=== PATIENT | male | born 1955 | race Caucasian/White ===

== ENCOUNTER 2017-09-11 20:44 | Inpatient (IN) | payer OTHER ==
[2017-09-11] MEDS ORDERED: ONDANSETRON 4 MG/2 ML VIAL IVP ONE (21:00)
[2017-09-11] MEDS ORDERED: HYDROmorphONE/DILAUDID 2 MG/ML INJ IVP ONE ×4 (21:00→23:38)
--- NOTE | 2017-09-11 21:24 | EDPHY ---
H & P Time Seen by Provider: 09/11/17 20:54 HPI/ROS: CHIEF COMPLAINT: Back pain History by patient HISTORY OF PRESENT ILLNESS: 62-year-old male with a history of chronic back pain who is status post microdiskectomy 2 years ago presents complaining of acute onset severe upper lumbar spine pain after a fall last night. Patient was given someone a hug and lifting her off the ground when he fell backwards striking the car and the ground. He was unable to get up on his own due to the severe pain. Bystanders helped him up. He is able to walk but his pain is worse when he moves around or changes position. It does not radiate down his legs and is not associated any numbness or tingling. He has had no difficulty controlling his bowel or bladder and there is no incontinence. He has tried taking ibuprofen with no relief. He put a zyqy-ggn-dcrggtz lidocaine patch on with minimal relief. He tried taking a tramadol he had from after her surgery which was at home with no relief. He has developed nausea secondary to the severe pain. Patient states that he has daily pain in his back which he describes as a low ache for which he rarely takes ibuprofen but this pain is different and markedly more severe. Patient is not on any steroid medications and does not have diabetes. REVIEW OF SYSTEMS: As in HPI, and all other systems reviewed and are negative Smoking Status: Never smoked Physical Exam: General Appearance: Alert, uncomfortable appearing, standing near the gurney. Head: Normocephalic, atraumatic Eyes: Pupils equal and round, no pallor or injection. ENT, Mouth: Mucous membranes moist. Neck: No bony tenderness, full range of motion Gastrointestinal: Abdomen is soft and nontender, no masses, bowel sounds normal. Perianal sensation intact. Pelvis: Stable, mild right-sided tenderness with compression Neurological: Awake, alert and oriented x 3, no pronator drift, halting gait, , DTRs 2+ and equal bilaterally in knees and ankles, left side pain with straight leg raise of left leg, no pain with right leg straight leg raise, wiggles all toes, strength is 5/5 and equal bilaterally in the lower extremities Back: Well-healed midline scar in the mid L-spine, Positive upper L-spine bony tenderness, positive sacral tenderness, no CVA tenderness Skin: Warm and dry, no rashes. Musculoskeletal: Neck is supple, FROM, nontender. Extremities: symmetrical, full range of motion. Psychiatric: Patient has normal affect, there is no agitation. Constitutional: Initial Vital Signs Temperature (C) 37.0 C 09/11/17 21:02 Heart Rate 90 09/11/17 21:02 Respiratory Rate 20 09/11/17 21:02 Blood Pressure 157/103 H 09/11/17 21:02 O2 Sat (%) 96 09/11/17 21:02 O2 Delivery Mode Nasal Cannula O2 (L/minute) 2 Allergies/Adverse Reactions: No Known Allergies Allergy (Verified 09/11/17 21:01) Home Medications: Medication Instructions Recorded Aspirin [Aspirin 81mg (*)] 09/11/17 Statin 09/11/17 MDM/Departure - MDM Imaging Results: Imaging Impressions Lumbar Spine X-Ray 09/11/17 21:13 Impression: 1. L2 moderate to severe compression fracture with retropulsion. 2. Recommend CT or MRI of the lumbar spine. Findings and recommendations discussed with Emergency Department physician, Marilou Alvarez MD at 21:50 hour, 09/11/2017. Final report concurs with initial preliminary interpretation. Imaging: Discussed imaging studies w/ on call Radiologist Medications Given: Discontinued Medications Hydromorphone HCl (Dilaudid) 0.5 mg IVP EDNOW ONE Stop: 09/11/17 21:01 Last Admin: 09/11/17 21:18 Dose: 0.5 mg Hydromorphone HCl (Dilaudid) 0.5 mg IVP EDNOW ONE Stop: 09/11/17 22:00 Last Admin: 09/11/17 22:01 Dose: 0.5 mg Ondansetron HCl (Zofran) 4 mg IVP EDNOW ONE Stop: 09/11/17 21:01 Last Admin: 09/11/17 21:18 Dose: 4 mg ED Course/Re-evaluation: 62-year-old man with history of back pain presents with acute new back pain after fall 24 hr ago. Patient is neurologically intact. Because of the trauma the patient's age x-rays were obtained. Patient was given IV Dilaudid 0.5 mg and Zofran. On re-evaluation his pain it was better while he was laying flat on the gurney significantly worse if he moves in all. He did request a 2nd dose of pain medicines which he was given. After the Dilaudid the patient's oxygen saturation was noted to decrease somewhat and he was placed on nasal cannula oxygen. X-rays revealed compression fracture of L2 with concern for retropulsed fragment per the radiologist. Patient was therefore sent for CT of the lumbar spine which showed at unstable burst fracture with 6 mm retropulsion of the superior inferior fragments. I discussed the case with Dr. Burgos who felt the patient was a candidate for a [place] brace given that he is neurologically intact and somewhat ambulatory. He requested [employer] fit the patient for a [place] brace. On re-evaluation the patient continued to have significant pain with any movement, and was only comfortable he was laying still and flat. He and his both felt it to be extremely difficult to manage at home given they have multiple stairs to get back into the house and she was having difficulty assisting him from the bed to the bathroom today and the severity of his pain. Therefore I discussed the case with the hospitalist station examiner who agrees to admit the patient for pain control. Dr. Bhat will see the patient in consult. - Depart Disposition: [facility] Inpatient Acute Clinical Impression: Burst fracture of lumbar vertebra Qualifiers: Encounter type: initial encounter Fracture type: closed Qualified Code(s): S32.001A - Stable burst fracture of unspecified lumbar vertebra, initial encounter for closed fracture Condition: Fair Referrals: Chad Olivia DO [Primary Care Provider] - As per Instructions
[2017-09-11] MEDS ORDERED: HYDROmorphone HCL/NS 0.5 MG/ML SYR IVP PRN (22:49)
[2017-09-11] MEDS ORDERED: ACETAMINOPHEN 325 MG TAB PO PRN (22:49)
[2017-09-12] MEDS: HYDROmorphONE/DILAUDID 2 MG TAB PO PRN ×6 (01:02→22:29)
[2017-09-12] MEDS: ONDANSETRON DISINTEGRATING 4 MG TAB PO PRN ×3 (01:02→19:59)
--- NOTE | 2017-09-12 01:11 | PDGENHP ---
History and Physical - Chief Complaint Back pain - History of Present Illness 62 yo M w/ CAD and multiple orthopedic surgeries presents with back pain. Patient experienced a fall yesterday and has had severe back pain since. He denies leg weakness/numbness or loss of bowel or bladder control. Evaluation in the ED revealed lumbar compression fracture. Patient is being admitted for pain control and neurosurgical consultation. History Information - Allergies/Home Medication List Allergies/Adverse Reactions: No Known Allergies Allergy (Verified 09/11/17 21:01) Home Medications: Aspirin [Aspirin 81mg (*)] 09/11/17 [Last Taken Unknown] Statin 09/11/17 [Last Taken Unknown] I have personally reviewed and updated: family history, medical history - Past Medical History coronary artery disease - Surgical History Reports: spinal surgery Additional surgical history: R shoulder repair. B/L knee surgeries - Family History Additional family history: Denies family hx of CAD - Social History Smoking Status: Never smoked Review of Systems Review of Systems: ROS: 10pt was reviewed & negative except for what was stated in HPI & below Physical Exam Physical Exam: Temp Pulse Resp BP Pulse Ox 37.2 C 78 18 145/89 H 96 09/11/17 23:55 09/11/17 23:55 09/11/17 23:55 09/11/17 23:55 09/11/17 23:55 O2 (L/minute) 2 Constitutional: no apparent distress, not in pain Eyes: PERRL, EOMI Ears, Nose, Mouth, Throat: moist mucous membranes, no oral mucosal ulcers Cardiovascular: regular rate and rhythym, no murmur, rub, or gallop Respiratory: no respiratory distress, clear to auscultation Gastrointestinal: normoactive bowel sounds, soft, non-tender abdomen Skin: warm, normal color Musculoskeletal: full muscle strength, no muscle tenderness Neurologic: AAOx3, sensation intact bilaterally, CN II-XII Intact, No weakness, No numbness Psychiatric: interacting appropriately, not anxious Lab Data & Imaging Review Imaging Review: Imaging Impressions Lumbar Spine X-Ray 09/11/17 21:13 Impression: 1. L2 moderate to severe compression fracture with retropulsion. 2. Recommend CT or MRI of the lumbar spine. Findings and recommendations discussed with Emergency Department physician, Marilou Alvarez MD at 21:50 hour, 09/11/2017. Final report concurs with initial preliminary interpretation. Lumbar Spine CT 09/11/17 21:51 Impression: 1. Severe burst fracture of the L2 vertebral body and posterior elements with 40 % loss of vertical height, retropulsion 6 mm resulting in moderate to severe central canal stenosis, and fractures also extending through bilateral pedicles and bilateral lamina consistent with an unstable fracture. 2. L4-L5 mild stenosis secondary to right paramedian disk herniation/broad- based disk bulge. 3. Infrarenal abdominal aortic aneurysm 3.2 cm. 4. Recommend MRI of the lumbar spine for further evaluation. Findings and recommendations discussed with Emergency Department physician, Marilou Alvarez MD at 22:15 hour, 09/11/2017. Final report concurs with initial preliminary interpretation. A test result has been communicated to a licensed care provider and documented in the [facility] Critical Result system on 09/11/2017 22:23, Message ID [id number]. Assessment & Plan Assessment: 62 yo M w/ CAD presents with back pain after a fall and found to have lumbar fracture. Plan: 1. L2 compression fracture - Severe burst fracture of the L2 vertebral body and posterior elements with 40% loss of vertical height, retropulsion 6 mm resulting in moderate to severe central canal stenosis, and fractures also extending through bilateral pedicles and bilateral lamina consistent with an unstable fracture. - Admit for observation - Dilaudid IV/PO for pain control - Neurosurgery service consulted, appreciate assistance - PT/OT evaluations 2. CAD - S/p sent placement to [facility] in 2013. Continue ASA and statin. 3. OA - Multiple prior surgeries including spine, shoulder, and knees. Diet - Regular Code - Full Ppx - SCDs Dispo - Admit under observation status
[2017-09-12] MEDS ORDERED: LORazepam 0.5 MG TAB PO ONE (04:55)
[2017-09-12] MEDS ORDERED: METHOCARBAMOL 1,000 MG in NS 50 ML IVP ONE (08:23)
--- NOTE | 2017-09-12 10:20 | GCON ---
[f rep st] CONSULTATION DATE OF CONSULTATION: 09/12/2017 REASON FOR CONSULTATION: Low back pain, status post fall with evidence of compression fracture. HOSPITAL COURSE/HISTORY/MAJOR MEDICAL FINDINGS: The patient is a 62-year-old gentleman who is known to Dr. Henderson for undergoing a prior diskectomy in 2015. He states that on Tuesday he was joking around with some of his friends near his car, slipped, and fell on his back. He has been experiencing back pain since that time. He did take some tramadol that he had in his house, however, that was ineffective. He denies any leg pain, numbness, tingling, or weakness. Denies any loss of bowel or bladder control. He states his spasms continued to progress over Tuesday and that is why he came into the emergency room last night. REVIEW OF SYSTEMS: Negative other than what is stated in the HPI. Please see the pertinent negatives and pertinent positives. PAST MEDICAL HISTORY: Significant for coronary artery disease, status post stents placed in 2013, hypercholesteremia, and history of degenerative disk disease. PAST SURGICAL HISTORY: Significant for stent placement as well as history of diskectomy, right shoulder repair, and bilateral knee surgeries. HOME MEDICATIONS: Aspirin 81 mg one p.o. daily and a statin for his hypercholesterolemia. FAMILY HISTORY: Significant for lung cancer in his father and his mother of old age. SOCIAL HISTORY: The patient occasionally will smoke a cigar. He has never smoked tobacco and denies any illicit drug use or chronic daily alcohol use. PHYSICAL EXAMINATION: VITALS: BP is 152/91, heart rate is 68. He is 91% on 3 L nasal cannula, and temperature is 36.8. GENERAL: The patient is in no acute distress. NEURO: He is alert and oriented x3. Answers all questions appropriately. Affect appropriate to given situation. Cranial nerves 2 through 12 are grossly intact. EOMI and PERRLA. Face is symmetric, tongue protrudes midline, uvula and palate elevate symmetrically, shoulder shrug is symmetric, face sensation is intact bilaterally, and hearing is intact to conversation bilaterally. The patient is a 5/5 and equal in his bilateral upper and bilateral lower extremities including his deltoids, triceps, biceps, wrist flexors, extensors, interossei, intrinsic turntable engineer, iliopsoas, hamstrings, quadriceps, plantar flexion, dorsiflexion, and EHL. Sensation is intact throughout. MUSCULOSKELETAL: He does have tenderness over his lumbar spine in the L2 area. DIAGNOSTIC REVIEW: The patient underwent lumbar spine x-rays, which demonstrated an L2 skjghmmr-zb-kzffdz compression fracture with retropulsion. He further underwent a lumbar spine CT which demonstrates severe burst fracture of the L2 vertebral body with posterior elements of 40% vertical height loss, retropulsion of 6 mm resulting in itvzzgig-dg-ybewxo canal stenosis extending through the bilateral pedicles. There was an L4-L5 mild stenosis secondary to his right paramedian disk herniation. There was an incidental infrarenal abdominal aortic aneurysm of 3.2 cm noted. ASSESSMENT AND PLAN: The patient is a 62-year-old gentleman who sustained a fall on Tuesday night who has severe low back pain. He has evidence of an L2 burst type compression fracture with some retropulsion. The patient was seen both by Dr. Henderson and myself. The patient is neurologically intact. I did discuss conservative versus surgical options with the patient this morning. We will attempt conservative management with optimization of pain management including muscle relaxers which have been ordered. A Jarrod brace for the patient to wear whenever he is greater than 60 degrees. Until the brace arrives, he should be in bed no more than 30 degrees. We appreciate Medicine's primary management of this patient. He does have a history of cardiac disease as well as an infrarenal aortic aneurysm noted on his CT. We will defer to Medicine with appropriate followup and management of that finding. Physical therapy and occupational therapy as tolerated with brace. We will obtain standing x-rays in brace once it has arrived. If the patient fails conservative management, we did briefly discuss that surgery for this burst fracture would require internal fixation with hardware. Please notify Neurosurgery with any change in neurological or motor exam. /[id number]/MODL MTDD
[2017-09-12] MEDS ORDERED: CARBOXYMETHYLCELLULOSE 1% 0.4 ML DROPERETTE EACHEYE PRN (11:47)
--- NOTE | 2017-09-12 12:12 | HOSPPROG ---
Hospitalist Progress Note Assessment/Plan: # L2 burst fracture - patient would like to treat non-operatively - MRI today - [place] brace ordered # uncontrolled pain - cont dilaudid IV - increase dilaudid PO - sched APAP # anxiety - will add valium for muscle spasms and anxiety # 3.2 cm infrarenal aortic aneurysm - outpatient follow up for surveillance Subjective: still having severe pain with any movement; discussion with patient and about plans Objective: Vital Signs Temp Pulse Resp BP Pulse Ox 36.4 C 74 18 160/96 H 91 L 09/12/17 11:25 09/12/17 11:25 09/12/17 11:25 09/12/17 11:25 09/12/17 11:25 Laboratory Results 09/12/17 04:16 09/11/17 09/12/17 09/13/17 05:59 05:59 05:59 Intake Total 900 300 Output Total 250 Balance [address] reviewed - Physical Exam Constitutional: uncomfortable, other (lying flat in bed) Cardiovascular: regular rate and rhythym, no murmur, rub, or gallop Respiratory: no respiratory distress, no rales or rhonchi Gastrointestinal: soft, non-tender abdomen, no palpable masses Musculoskeletal: other (motor and sensation intact in feet) ICD10 Worksheet Patient Problems: Problems Problem Status Onset Burst fracture of lumbar vertebra Acute
[2017-09-12] MEDS: DIAZEPAM 5 MG TAB PO PRN ×2 (13:29→19:55)
[2017-09-12] MEDS: HYDROmorphone HCL/NS 0.5 MG/ML SYR IVP PRN (14:54)
--- NOTE | 2017-09-12 15:15 | ASMTCMCOM ---
CM Note CM Note Notes: Pt awaiting [place] brace for L2 burst fracture after a fall. No therapies ordered now. CM to follow for d/c planning. Date Signed: 09/12/2017 03:15 PM Electronically Signed By:ANGELINA Cano
--- NOTE | 2017-09-12 15:46 | PDMN ---
Medical Necessity Medical necessity: GRG musculoskeletal disease: L2 burst type compression fx with some retropulsion, ongoing med nec care IV pain meds, Valium, PT, OT Jarrod brace ordered. INPT care needed , monitoring and tx > 23 hours needed.
[2017-09-12] MEDS: METHOCARBAMOL 500 MG TAB PO SCH ×2 (16:11→21:46)
[2017-09-12] MEDS: ACETAMINOPHEN 500 MG TAB PO SCH ×2 (16:11→21:45)
[2017-09-12] MEDS: ROSUVASTATIN CALCIUM 40 MG TAB PO SCH (19:55)
[2017-09-12] MEDS: MELATONIN 3 MG TAB PO SCH (21:46)
[2017-09-13] MEDS: DIAZEPAM 5 MG TAB PO PRN ×4 (03:03→20:45)
[2017-09-13] MEDS: HYDROmorphONE/DILAUDID 2 MG TAB PO PRN ×6 (03:04→21:46)
[2017-09-13] MEDS: ACETAMINOPHEN 500 MG TAB PO SCH ×3 (07:50→21:46)
[2017-09-13] MEDS: METHOCARBAMOL 500 MG TAB PO SCH ×3 (07:52→21:47)
--- NOTE | 2017-09-13 08:53 | NEUSURGPN ---
Assessment/Plan: 62 y/o male with burst type compression fracture. Patient would like to try conservative treatment prior to surgical intervention. -OOB with brace and PT today to see if able to tolerate brace -Standing xrays in brace pending -Optimize pain management -Discussed with Dr. Henderson -Please notify NS with any change in neuro/motor exam Subjective: back pain with sitting at the edge of the bed. Denies any leg pain, numbness, tingling or weakness. Objective: NAD A&Ox3 MAEx4 5/5 and equal in BUE and BLE. - Physician Discussed Patient with : [facility] Physical Exam - Vitals, I&O, Labs I and O 09/12/17 09/13/17 09/14/17 05:59 05:59 05:59 Intake Total 900 1850 Output Total 1050 200 Balance 900 800 -200 Weight 88.451 kg 88.451 kg Intake: Oral (ml) 900 1850 Output: Urine (ml) 1050 200 Toilet 250 Urinal 800 200 Other: Intake Quantity Yes Sufficient Number of Voids Toilet 1 Urinal 4 Vital Signs Temp Pulse Resp BP Pulse Ox 36.4 C 74 16 158/96 H 93 09/13/17 07:36 09/13/17 07:36 09/13/17 07:36 09/13/17 07:36 09/13/17 07:36 Laboratory Results 09/12/17 04:16 ICD10 Worksheet Patient Problems: Problems Problem Status Onset Burst fracture of lumbar vertebra Acute
[2017-09-13] MEDS ORDERED: BISACODYL 10 MG SUPP PR PRN (12:56)
[2017-09-13] MEDS ORDERED: LACTULOSE 20 GM/30 ML UDCUP PO PRN (12:56)
--- NOTE | 2017-09-13 13:04 | HOSPPROG ---
Hospitalist Progress Note Assessment/Plan: # pre-syncope - suspect d/t pain; will check CBC, BMP, trop and ECG # L2 burst fracture - patient would like to treat non-operatively - Jarrod brace ordered - standing x-rays with brace ordered - not really bearing weight today - not ready for discharge # uncontrolled pain - cont dilaudid IV - dilaudid PO with decreased frequency - sched APAP # anxiety - cont valium for muscle spasms and anxiety # 3.2 cm infrarenal aortic aneurysm - outpatient follow up for surveillance Subjective: pre-syncopal event today while working with PT; felt it was due to uncontrolled pain; no CP or SOB Objective: Vital Signs Temp Pulse Resp BP Pulse Ox 36.8 C 64 16 103/59 L 92 09/13/17 11:17 09/13/17 11:17 09/13/17 11:17 09/13/17 11:17 09/13/17 11:17 Laboratory Results 09/12/17 04:16 09/12/17 09/13/17 09/14/17 05:59 05:59 05:59 Intake Total 900 1850 Output Total 1050 200 Balance 900 800 -200 high risk needing IV narcotics - Physical Exam Constitutional: no apparent distress, appears nourished Cardiovascular: regular rate and rhythym, no murmur, rub, or gallop Respiratory: no respiratory distress, no rales or rhonchi, clear to auscultation Gastrointestinal: soft, non-tender abdomen, no palpable masses ICD10 Worksheet Patient Problems: Problems Problem Status Onset Burst fracture of lumbar vertebra Acute
[2017-09-13] MEDS: HYDROmorphone HCL/NS 0.5 MG/ML SYR IVP PRN ×4 (13:05→20:53)
--- NOTE | 2017-09-13 13:24 | CPEKG ---
Heart Rate: 70 RR Interval: 857 P-R Interval: 176 QRSD Interval: 90 QT Interval: 420 QTC Interval: 454 P Stephan: 55 QRS Stephan: 54 T Wave Stephan: 37 EKG Severity - NORMAL ECG - EKG Impression: SINUS RHYTHM Electronically Signed By: Amee Delacruz 13-Sep-2017 16:41:13
[2017-09-13 13:45] LABS: PLATELET COUNT 163 10^3/uL (150-400)
[2017-09-13] MEDS: ENOXAPARIN 40 MG/0.4 ML SYR SC SCH (13:49)
[2017-09-13] MEDS: ROSUVASTATIN CALCIUM 40 MG TAB PO SCH (20:46)
[2017-09-13] MEDS: SENNOSIDES/DOCUSATE SODIUM TAB PO SCH (20:47)
[2017-09-13] MEDS: MELATONIN 3 MG TAB PO SCH (21:47)
[2017-09-13] MEDS: ONDANSETRON DISINTEGRATING 4 MG TAB PO PRN (21:50)
[2017-09-14] MEDS: HYDROmorphone HCL/NS 0.5 MG/ML SYR IVP PRN ×6 (01:52→18:32)
[2017-09-14] MEDS: HYDROmorphONE/DILAUDID 2 MG TAB PO PRN ×6 (01:52→22:36)
[2017-09-14] MEDS: DIAZEPAM 5 MG TAB PO PRN ×3 (01:54→19:52)
--- NOTE | 2017-09-14 08:00 | NEUSURGPN ---
Assessment/Plan: Assessment: 62 y/o male with burst type compression fracture of L2 Plan: -pt not tolerating brace at this time and gets "horrible back pain". He denies any LE complaints of pain, numbness or tingling -I spoke with him about surgery and offered this to him for tonight but he would like to try the brace alternative today and then surgery tomorrow if he fails with bracing. Pt made NPO as we would have time tonight for this as well. Will recheck on him later today -Dr Henderson agrees with plan -OOB with brace and PT today to see if able to tolerate brace more today -standing xrays in brace pending -Optimize pain management -Discussed with Dr. Henderson -Please notify NS with any change in neuro/motor exam -call with any questions or concerns Subjective: Awake and alert. NAD. Eating/drinking and voiding well. No gamble/neck/chest/abd or gu complaints. No f/c/n/v/d. Objective: AAO x 3, PERRLA/EOMI no droop CN 2-12 grossly intact +lt touch 5/5 BUE/BLE = Neuro Check Frequency: per routine Urinary Catheter in Place: No - Physician Discussed Patient with Dr.: Henderson Neurosurgery Physical Exam - Vitals, I&O, Labs I and O 09/13/17 09/14/17 09/15/17 05:59 05:59 05:59 Intake Total 1850 950 Output Total 1050 1150 400 Balance 800 -200 -400 Weight 88.451 kg Intake: Oral (ml) 1850 950 Output: Urine (ml) 1050 1150 400 Toilet 250 Urinal 800 1150 400 Other: Intake Quantity Yes Sufficient Number of Voids Toilet 1 Urinal 4 1 1 Vital Signs Temp Pulse Resp BP Pulse Ox 36.9 C 74 16 149/90 H 91 L 09/14/17 07:38 09/14/17 07:38 09/14/17 07:38 09/14/17 07:38 09/14/17 07:38 Laboratory Results 09/13/17 13:40 09/13/17 13:40 ICD10 Worksheet Patient Problems: Problems Problem Status Onset Burst fracture of lumbar vertebra Acute
[2017-09-14] MEDS: METHOCARBAMOL 500 MG TAB PO SCH ×3 (08:47→20:54)
[2017-09-14] MEDS: ACETAMINOPHEN 500 MG TAB PO SCH ×3 (08:47→22:35)
[2017-09-14] MEDS: SENNOSIDES/DOCUSATE SODIUM TAB PO SCH ×2 (08:49→19:52)
[2017-09-14] MEDS: ENOXAPARIN 40 MG/0.4 ML SYR SC SCH (08:55)
[2017-09-14] MEDS: oxyCODONE IR 5 MG TAB PO PRN ×3 (09:51→22:36)
--- NOTE | 2017-09-14 13:27 | HOSPPROG ---
Hospitalist Progress Note Assessment/Plan: 62y male with c/o back pain. First encounter, chart reviewed. D/W RN. # pre-syncope - suspect d/t pain; # L2 burst fracture - - patient would like to treat non-operatively - Jarrod brace trial - standing x-rays with brace ordered, unable - not really bearing weight today - not ready for discharge # uncontrolled pain -add Oxy IR - cont dilaudid IV - dilaudid PO with decreased frequency - sched APAP # anxiety - -cont valium for muscle spasms and anxiety # 3.2 cm infrarenal aortic aneurysm - -outpatient follow up for surveillance ##Dispo -unclear, may likely need surgery -doesn't want it today -wants to talk to Dr Henderson first Subjective: Still having significant pain. No other issues. Concerns for surgery. Objective: Vital Signs Temp Pulse Resp BP Pulse Ox 36.4 C 68 16 145/99 H 92 09/14/17 11:20 09/14/17 11:20 09/14/17 11:20 09/14/17 11:20 09/14/17 11:20 Laboratory Results 09/13/17 13:40 09/13/17 13:40 09/13/17 09/14/17 09/15/17 05:59 05:59 05:59 Intake Total 1850 950 500 Output Total 1050 1150 400 Balance 800 -200 100 - Physical Exam Constitutional: appears nourished, uncomfortable, No obese Eyes: PERRL, anicteric sclera, EOMI Ears, Nose, Mouth, Throat: moist mucous membranes, hearing normal, ears appear normal Cardiovascular: No JVD, No tachycardia, No edema Respiratory: no respiratory distress, no rales or rhonchi, clear to auscultation Gastrointestinal: normoactive bowel sounds, No tenderness, No ascites Skin: warm, normal color, No mottled Musculoskeletal: pain with ROM, generalized weakness, No normal joint ROM Neurologic: AAOx3 Psychiatric: interacting appropriately, not encephalopathic, thought process linear, anxious ICD10 Worksheet Patient Problems: Problems Problem Status Onset Burst fracture of lumbar vertebra Acute
[2017-09-14] MEDS: POLYETHYLENE GLYCOL 3350 17 GM PKT PO PRN (16:58)
[2017-09-14] MEDS: ONDANSETRON 4 MG/2 ML VIAL IVP PRN (18:36)
[2017-09-14] MEDS: ROSUVASTATIN CALCIUM 40 MG TAB PO SCH (19:52)
[2017-09-14] MEDS: MELATONIN 3 MG TAB PO SCH (22:37)
[2017-09-15] MEDS: HYDROmorphONE/DILAUDID 2 MG TAB PO PRN ×5 (02:05→20:31)
[2017-09-15] MEDS: DIAZEPAM 5 MG TAB PO PRN ×3 (02:06→20:32)
[2017-09-15] MEDS: ONDANSETRON 4 MG/2 ML VIAL IVP PRN ×2 (04:25→06:23)
[2017-09-15] MEDS: HYDROmorphone HCL/NS 0.5 MG/ML SYR IVP PRN ×3 (04:25→08:44)
[2017-09-15] MEDS: NS 1,000 ML IV SCH ×2 (06:15→23:55)
[2017-09-15] MEDS: METHOCARBAMOL 500 MG TAB PO SCH ×3 (07:45→23:08)
[2017-09-15] MEDS: SENNOSIDES/DOCUSATE SODIUM TAB PO SCH ×2 (07:45→22:07)
--- NOTE | 2017-09-15 08:37 | NEUSURGPN ---
Assessment/Plan: 62 y/o male with burst type compression fracture of L2 who is not tolerating bracing -Patient has attempted and failed conservative management. Therefore have recommended L1-L3 laminectomy and PSF. Risks, benefits and alternatives discussed with the patient. Consents signed and questions answered. -Optimize pain management -NPO at midnight for surgery tomorrow morning. -Constipation, appreciate medicine management. Patient on bowel protocol -Seen by Dr. Henderson and myself this morning. -Please notify NS with any change in neuro/motor exam Subjective: low back pain, not tolerable with brace or pain medications. Objective: NAD A&Ox3 MAEx4 5/ and equal in BUE and BLE. - Physician Patient Seen by : [facility] Physical Exam - Vitals, I&O, Labs I and O 09/14/17 09/15/17 09/16/17 05:59 05:59 05:59 Intake Total 950 2250 Output Total 1150 900 Balance -200 1350 Intake: Oral (ml) 950 2000 IV Intake (ml) 250 Output: Urine (ml) 1150 900 Catheter 500 Urinal 1150 400 Other: Intake Quantity Yes Sufficient Number of Voids Bedside Commode 2 Urinal 1 1 Vital Signs Temp Pulse Resp BP Pulse Ox 36.7 C 76 15 149/98 H 92 09/15/17 07:29 09/15/17 07:29 09/15/17 07:29 09/15/17 07:29 09/15/17 07:29 Laboratory Results 09/13/17 13:40 09/13/17 13:40 ICD10 Worksheet Patient Problems: Problems Problem Status Onset Burst fracture of lumbar vertebra Acute
[2017-09-15] MEDS: ENOXAPARIN 40 MG/0.4 ML SYR SC SCH (08:48)
[2017-09-15] MEDS: ACETAMINOPHEN 500 MG TAB PO SCH ×3 (08:50→23:08)
--- NOTE | 2017-09-15 10:10 | ASMTCMCOM ---
CM Note CM Note Notes: Pt has not been able to tolerate brace and has uncontrolled pain. Pt to OR tomorrow for surgery of L2 burst fx. OT/PT to assess after surgery. CM to follow for d/c planning needs. Date Signed: 09/15/2017 10:09 AM Electronically Signed By:ANGELINA Cano
[2017-09-15] MEDS: MAGNESIUM HYDROXIDE 30 ML UDCUP PO PRN (11:00)
--- NOTE | 2017-09-15 11:39 | HOSPPROG ---
Hospitalist Progress Note Assessment/Plan: 62y male with c/o back pain. D/W RN. # pre-syncope - suspect d/t pain; # L2 burst fracture - - patient has tried non-operative treatment, not tolerating - Jarrod brace trialed - standing x-rays with brace - not really bearing weight today -plan for surgery in am # uncontrolled pain - Oxy IR - cont dilaudid IV - dilaudid PO with decreased frequency - sched APAP #Constipation -aggressive therapy -fleets ordered # anxiety - -cont valium for muscle spasms and anxiety # 3.2 cm infrarenal aortic aneurysm - -outpatient follow up for surveillance #Dispo -needs surgery Subjective: Still having significant pain. Unable to have a bm. Objective: Vital Signs Temp Pulse Resp BP Pulse Ox 36.7 C 76 15 149/98 H 92 09/15/17 07:29 09/15/17 07:29 09/15/17 07:29 09/15/17 07:29 09/15/17 07:29 Laboratory Results 09/13/17 13:40 09/13/17 13:40 09/14/17 09/15/17 09/16/17 05:59 05:59 05:59 Intake Total 950 2250 Output Total 1150 900 Balance -200 1350 - Physical Exam Constitutional: appears nourished, uncomfortable Eyes: PERRL, anicteric sclera Ears, Nose, Mouth, Throat: moist mucous membranes, hearing normal Cardiovascular: No JVD, No edema Respiratory: no respiratory distress, reduced air movement Gastrointestinal: distension, No tenderness, No ascites Skin: warm, normal color, No mottled Musculoskeletal: joint tenderness, pain with ROM, muscular tenderness, generalized weakness Neurologic: AAOx3 Psychiatric: interacting appropriately, not anxious, not encephalopathic ICD10 Worksheet Patient Problems: Problems Problem Status Onset Burst fracture of lumbar vertebra Acute
[2017-09-15] MEDS ORDERED: MAGNESIUM CITRATE 300 ML BOTTLE PO PRN (16:22)
[2017-09-15] MEDS: ROSUVASTATIN CALCIUM 40 MG TAB PO SCH (20:32)
[2017-09-15] MEDS: ONDANSETRON DISINTEGRATING 4 MG TAB PO PRN (21:10)
[2017-09-15] MEDS: MELATONIN 3 MG TAB PO SCH (23:09)
[2017-09-16] MEDS: HYDROmorphONE/DILAUDID 2 MG TAB PO PRN ×4 (01:02→23:49)
[2017-09-16] MEDS: DIAZEPAM 5 MG TAB PO PRN (01:54)
[2017-09-16] MEDS ORDERED: morphINE SR 15 MG TAB PO ONE (05:00)
[2017-09-16] MEDS ORDERED: ceFAZolin 2 GM/DEXTROSE 100 ML IV ONE (05:00)
[2017-09-16] MEDS ORDERED: GABAPENTIN 300 MG CAP PO ONE (05:00)
[2017-09-16] MEDS ORDERED: ceFAZolin 2 GM/SWFI 2 GM/20 ML SYR IVP ONE (05:00)
[2017-09-16] MEDS ORDERED: GABAPENTIN 100 MG CAP PO ONE (05:00)
[2017-09-16] MEDS: HYDROmorphone HCL/NS 0.5 MG/ML SYR IVP PRN (06:17)
[2017-09-16] MEDS ORDERED: LR 1,000 ML IV ONE (07:26)
--- NOTE | 2017-09-16 07:41 | PDHPUP ---
History & Physical Update H&P update statement: This history and physical update is based on an assessment of the patient which was completed after admission or registration (within 24 hours), but prior to the surgery/procedure. H&P update: H&P reviewed & patient examined, no change in patient's condition since H&P completed (Patient seen this morning. All questions answered. Consents have been signed and site marked. Plan for L1-L3 posterior fusion and laminectomy. Risks and benefits of surgery reviewed.)
[2017-09-16] MEDS ORDERED: THROMBIN (BOVINE) 20,000 UNIT VIAL TP ONE (07:44)
[2017-09-16] MEDS ORDERED: BUPIVACAINE 0.25% 30 ML SDV ONE (07:44)
[2017-09-16] MEDS ORDERED: CHLORHEXIDINE GLUC HIBICLENS 118 ML BTL TP ONE (07:44)
[2017-09-16] MEDS ORDERED: BACITRACIN 50,000 UNITS/10 ML SYR IRR ONE (07:45)
[2017-09-16] MEDS ORDERED: ceFAZolin 2 GM/SWFI 20 ML SYR IVP ONE (07:58)
[2017-09-16] MEDS ORDERED: MIDAZOLAM 2 MG/2 ML VIAL ONE (08:19)
[2017-09-16] MEDS ORDERED: PROPOFOL/EMULSION 500 MG/50 ML BOTTLE IV ONE (08:19)
[2017-09-16] MEDS ORDERED: fentaNYL 100 MCG/2 ML INJ ONE (08:19)
[2017-09-16] MEDS ORDERED: DEXMEDETOMIDINE IN 0.9 % NACL 100 ML IV ONE (08:30)
[2017-09-16] MEDS ORDERED: PHENYLEPHRINE HCL 100 MCG/ML SYR ONE (08:59)
[2017-09-16] MEDS ORDERED: DEXAMETHASONE 4 MG/ML VIAL ONE (08:59)
[2017-09-16] MEDS ORDERED: SUGAMMADEX SODIUM 200 MG/2 ML VIAL IVP ONE (08:59)
[2017-09-16] MEDS ORDERED: SUCCINYLCHOLINE CHLORIDE 200 MG/10 ML SYR IVP ONE (08:59)
[2017-09-16] MEDS ORDERED: CALCIUM CHLORIDE 1 GM/10 ML INJ ONE (08:59)
[2017-09-16] MEDS ORDERED: METOCLOPRAMIDE 10 MG/2 ML VIAL ONE (08:59)
[2017-09-16] MEDS ORDERED: ONDANSETRON 4 MG/2 ML VIAL ONE (08:59)
[2017-09-16] MEDS ORDERED: RANITIDINE 50 MG/2 ML VIAL ONE (08:59)
[2017-09-16] MEDS ORDERED: ROCURONIUM 50 MG/5 ML VIAL ONE (08:59)
[2017-09-16] MEDS ORDERED: LIDOCAINE 2% 5 ML SDV ONE (08:59)
--- NOTE | 2017-09-16 09:05 | PDANEPAE ---
ANE Past Medical History - Pulmonary History Hx Oxygen in Use at Home: No Hx Sleep Apnea: No Sleep Apnea Screening Result - Last Documented: Positive - Endocrine History Hx Diabetes: No - Chronic Pain History Chronic Pain: Yes ANE Review of Systems Review of Systems: ANE Patient History - Allergies Allergies/Adverse Reactions: No Known Allergies Allergy (Verified 09/11/17 21:01) - Home Medications Home Medications: Aspirin [Aspirin 81mg (*)] 81 mg PO HS 09/11/17 [Last Taken 09/09/17] Rosuvastatin Calcium [Crestor 40mg (*)] 40 mg PO HS 09/11/17 [Last Taken ] Carboxymethylcellulose 1% [Refresh Celluvisc (*)] 1 drop EACHEYE DAILY PRN 09/12 [Last Taken Unknown] - NPO status NPO Since - Liquids (Date): 09/16/17 NPO Since - Liquids (Time): 00:00 NPO Since - Solids (Date): 09/16/17 NPO Since - Solids (Time): 00:00 - Smoking Hx Smoking Status: Never smoked ANE Labs/Vital Signs - Labs Result Diagrams: 09/13/17 13:40 09/13/17 13:40 - Vital Signs Blood Pressure: 135/85 Heart Rate: 76 Respiratory Rate: 16 O2 Sat (%): 96 Height: 177.8 cm Weight: 88.451 kg ANE Physical Exam - Airway Neck exam: FROM, increased neck circumference, short neck Mallampati Score: Class 2 Mouth exam: normal dental/mouth exam - Pulmonary Pulmonary: no respiratory distress, no rales or rhonchi, clear to auscultation - Cardiovascular Cardiovascular: regular rate and rhythym, no murmur, rub, or gallop - ASA Status ASA Status: III ANE Anesthesia Plan Anesthesia Plan: general endotracheal anesthesia Lines/Monitors: additional IV
[2017-09-16] MEDS ORDERED: DEXAMETHASONE 4 MG/ML VIAL IVP PRN (09:11)
[2017-09-16] MEDS ORDERED: METOCLOPRAMIDE 10 MG/2 ML VIAL IVP PRN (09:11)
[2017-09-16] MEDS ORDERED: DIAZEPAM 5 MG/ML 1 ML SYR IVP PRN (09:11)
[2017-09-16] MEDS ORDERED: LR 500 ML IV PRN (09:11)
[2017-09-16] MEDS ORDERED: fentaNYL 100 MCG/2 ML INJ IVP PRN (09:11)
[2017-09-16] MEDS ORDERED: NALOXONE HCL 0.4 MG/ML INJ IVP PRN (09:11)
[2017-09-16] MEDS ORDERED: ALBUTEROL 3 ML DEYVIAL IH PRN (09:11)
[2017-09-16] MEDS ORDERED: PHENYLEPHRINE HCL 100 MCG/ML SYR IVP PRN (09:11)
[2017-09-16] MEDS ORDERED: MEPERIDINE 25 MG/ML SYR IVP PRN (09:11)
[2017-09-16] MEDS ORDERED: HYDROmorphone HCL/NS 0.5 MG/ML SYR IVP PRN ×2 (09:11→10:39)
[2017-09-16] MEDS ORDERED: ALBUMIN 5% 250 ML BOTTLE IV ONE (09:27)
[2017-09-16] MEDS: morphINE PF 5 MG/10 ML INJ ONE ×2 (10:09→12:17)
[2017-09-16] MEDS ORDERED: morphINE PF 5 MG/10 ML INJ IT ONE (10:37)
[2017-09-16] MEDS ORDERED: PROMETHAZINE HCL 25 MG/ML INJ IVP PRN (10:39)
[2017-09-16] MEDS ORDERED: diphenhydrAMINE 25 MG CAP PO PRN (10:39)
[2017-09-16] MEDS ORDERED: NS W/ 20 KCl/L 1,000 ML IV SCH (10:45)
--- NOTE | 2017-09-16 10:53 | POSTOPPROG ---
Post Op Note Date of Operation: 09/16/17 Surgeon: Talia Peck Dry Chain Worker: Ermias Peck PA-C Anesthesiologist: Cece Anesthesia: GET(General Endotracheal) Pre-op Diagnosis: L2 burst fracture Post-op Diagnosis: same Indication: pain, retropulsion Procedure: L1-L3 laminectomy and posterior fusion Findings: Please see dictation Inf/Abcess present in the surg proc area at time of surgery?: No Depth: Organ Space EBL: 100-500 Complications: none Drains: Hubert Rai Specimen(s): none PA Addendum - Addendum .: S: Pt resting in bed, c/o back pain O: Sleepy but awakens easily Follows all commands NAD VSS MAEx4 Motor 5/5 BUE/BLE +LT Incision dressed CDI JPx1 A: 62 yo M s/p L1-L3 laminectomy and posterior fusion P: PT/OT Pain management Jarrod brace when OOB TEDs, SCDs, lovenox POD#1 Post op xrays pending Call NS with any questions D/w Dr Henderson
[2017-09-16] MEDS ORDERED: HYDROmorphONE/DILAUDID 2 MG/ML INJ ONE (10:55)
[2017-09-16] MEDS: HYDROmorphONE/DILAUDID 2 MG/ML INJ IVP PRN ×3 (10:59→11:34)
--- NOTE | 2017-09-16 12:01 | GOP ---
[f rep st] OPERATIVE REPORT DATE OF OPERATION: 09/16/2017 SURGEON: Arian Henderson MD NEUROSURGEON: Arian Henderson MD ALLERGY PHYSICIAN: KATIE Guerrero. ANESTHESIA: General. PREOPERATIVE DIAGNOSIS: 1. L2 compression/burst fracture, status post fall. 2. Spinal stenosis. 3. Back pain. 4. Treatment refractory to nonoperative intervention. POSTOPERATIVE DIAGNOSIS: 1. L2 compression/burst fracture, status post fall. 2. Spinal stenosis. 3. Back pain. 4. Treatment refractory to nonoperative intervention. PROCEDURE PERFORMED: 1. Posterior arthrodesis with approach to L1, L2, and L3. 2. Open reduction/internal fixation of L2 compression/burst fracture. 3. Posterolateral fusion with bilateral pedicle screw placement at L1, L2, and L3 from the R[employer]inkra 4.75 system. 4. Decompressive laminectomy, L2 and L3 with bilateral medial facetectomies and spinal cord decompression. 5. Posterolateral fusion bilateral between L1 and L3 with morselized autograft and allograft. 6. Use of intraoperative 3D Stealth navigation. 7. Use of intraoperative fluoroscopy, less than 1 hour physician time. 8. Use of neuromonitoring. 9. Injection of preservative-free intrathecal narcotics. FINDINGS: per imaging SPECIMENS: None. ESTIMATED BLOOD LOSS: 100 mL. INDICATIONS: The patient is a 62-year-old gentleman who unfortunately suffered an L2 compression/burst fracture after a fall. The patient was neurologically intact but had evidence of intractable back pain. We tried to treat him conservatively using a back brace and pain medications; however, after 4 days, it was determined that he was not tolerating his brace and conservative management. After discussion of the risks, benefits, and treatment alternatives , after failing nonoperative management, we decided to proceed forth with surgery as described above. DESCRIPTION OF PROCEDURE: The patient was brought to the operating theater and underwent general endotracheal anesthesia without complications. He had Venodyne's, JOSE F hose, and the appropriate lines placed by Anesthesia. He was flipped prone using spinal precautions onto the Hubert table and all bony processes inspected and padded. The lower lumbar region was prepped and draped in the usual surgical fashion. A time-out was completed per protocol, and the patient received antibiotics within 1 hour of incision. Using lateral fluoroscopy and spinal needle, we picked our entry point to the L1 through L3 levels. This was marked in the midline. The incision site was infiltrated with Marcaine with epinephrine. The incision was taken down with the scalpel blade. Then using the monopolar, the incision was taken down the midline through the lumbodorsal fascia. A subperiosteal dissection was carried out to the transverse processes of L1, L2, and L3. Care was taken to preserve the T12-L1 bilateral facet joints. We attached the 3D Stealth navigation clamp to the spinous process of L3 and completed a 3D Stealth navigation spin. Using 3D Stealth navigation, we placed the marine pilot holes for the bilateral pedicle screws at L1, L2, and L3. All holes were manually palpated with no evidence of any cortical breaches. We tapped and placed 5.5 x 50 mm screws bilaterally in L1, L2, and L3 from the [employer] 4.75 system. Another 3D Stealth navigation spin demonstrated good placement of the hardware. At this point, using a combination of the bur tip on the drill bit, Kerrison punches, and Leksell rongeur, we completed decompressive laminectomy of L2-L3 with spinal cord decompression. This bone was then utilized to be morselized for the posterolateral fusion. The wound was irrigated copiously with bacitracin irrigation. We placed 2 lordotic rods into the heads of the screws between L1 and L3, and using compression and persuaders, we reduced his fracture and secured them into place with cap screws which were then tightened per the forest resources professor's setting between L1 and L3. We decorticated the bone bilaterally between L1 and L3 and then placed morselized autograft and allograft for the posterolateral fusion. We injected preservative-free intrathecal narcotics. A drain was left in the subfascial space and the wound then closed in multiple layers using Vicryl sutures for the deep layers and Dermabond for the skin. The patient's wounds were dressed sterilely. He was then flipped supine onto the transfer cart, where he was awakened and extubated, and then taken to the recovery room in stable condition. There were no complications and no noted changes on neuromonitoring throughout the procedure. COMPLICATIONS: None. /[id number]/MODL MTDD
[2017-09-16] MEDS: METHOCARBAMOL 500 MG TAB PO SCH ×3 (12:17→22:04)
[2017-09-16] MEDS: ACETAMINOPHEN 500 MG TAB PO SCH ×5 (12:17→22:04)
[2017-09-16] MEDS: SENNOSIDES/DOCUSATE SODIUM TAB PO SCH ×2 (12:17→20:44)
[2017-09-16] MEDS: ENOXAPARIN 40 MG/0.4 ML SYR SC SCH (12:18)
--- NOTE | 2017-09-16 12:30 | POSTANESTH ---
Post Anesthetic Evaluation Cardiovascular Status: Normal, Stable Respiratory Status: Normal, Stable Level of Consciousness/Mental Status: Can Participate in Eval Pain Control: Adequate, Prn Tx Ordered Nausea/Vomiting Control: Adequate, Prn Tx Ordered Complications Possibly Related to Anesthesia: None Noted
[2017-09-16] MEDS: ceFAZolin 2 GM/SWFI 2 GM/20 ML SYR IVP SCH ×2 (14:06→22:06)
--- NOTE | 2017-09-16 14:36 | HOSPPROG ---
Hospitalist Progress Note Assessment/Plan: 62y male with c/o back pain 2/2 L2 burst fracture. # pre-syncope - suspect 2/2 pain, not recurrent thus far # L2 burst fracture - not tolerating non-operative mgmt, now s/p surgery per Dr. Henderson # uncontrolled pain-control currently better on current regimen, will continue for now #Constipation -aggressive therapy -fleets ordered # anxiety - -cont valium for muscle spasms and anxiety # 3.2 cm infrarenal aortic aneurysm - -outpatient follow up for surveillance #Dispo-pending, s/p surgery and may require SNF, pt/ot involved Patient new to my care. Old records reviewed and summarized as above. Subjective: no significant overnight events, patient currently feeling well post surgery but notes he is concerned that it will be worse when medications wear off Objective: Vital Signs Temp Pulse Resp BP Pulse Ox 36.8 C 84 15 124/73 H 94 09/16/17 13:52 09/16/17 13:52 09/16/17 13:52 09/16/17 13:52 09/16/17 13:52 Laboratory Results 09/13/17 13:40 09/13/17 13:40 09/15/17 09/16/17 09/17/17 05:59 05:59 05:59 Intake Total 2250 500 915 Output Total 900 245 Balance 1350 500 670 awake alert anicteric op clear rrr no mrg cta to ant exam soft nt nd no cce warm dry well perfused oriented appropriate ICD10 Worksheet Patient Problems: Problems Problem Status Onset Burst fracture of lumbar vertebra Acute
--- NOTE | 2017-09-16 16:50 | ASMTCMCOM ---
CM Note CM Note Notes: Pt having surgery today. PT/OT ordered; awaiting post op evals. CM will follow. Dc plan TBD Date Signed: 09/16/2017 04:47 PM Electronically Signed By:Debbie Bojorquez RN
[2017-09-16] MEDS: ROSUVASTATIN CALCIUM 40 MG TAB PO SCH (20:44)
[2017-09-16] MEDS: oxyCODONE IR 5 MG TAB PO PRN (20:44)
[2017-09-16] MEDS: FAMOTIDINE 20 MG TAB PO SCH (20:44)
[2017-09-16] MEDS: MELATONIN 3 MG TAB PO SCH (23:01)
[2017-09-17] MEDS: DIAZEPAM 5 MG TAB PO PRN ×3 (02:44→22:39)
[2017-09-17] MEDS: oxyCODONE IR 5 MG TAB PO PRN (02:44)
[2017-09-17] MEDS: ACETAMINOPHEN 500 MG TAB PO SCH ×4 (05:11→22:38)
[2017-09-17] MEDS: ENOXAPARIN 40 MG/0.4 ML SYR SC SCH (09:28)
[2017-09-17] MEDS: METHOCARBAMOL 500 MG TAB PO SCH ×3 (09:29→22:39)
[2017-09-17] MEDS: SENNOSIDES/DOCUSATE SODIUM TAB PO SCH ×2 (09:29→19:40)
[2017-09-17] MEDS: FAMOTIDINE 20 MG TAB PO SCH ×2 (09:29→22:39)
[2017-09-17] MEDS: HYDROmorphONE/DILAUDID 2 MG TAB PO PRN ×5 (09:29→22:39)
--- NOTE | 2017-09-17 13:02 | NEUSURGPN ---
Date of Surgery: 09/16/17 Post Op Day: 1 Assessment/Plan: 62 yo M s/p L1-L3 laminectomy and posterior fusion for stablization of L2 burst fx P: PT/OT Pain management- oral meds and prepare for DC Jarrod brace when OOB TEDs, SCDs, lovenox POD#1 Post op xrays pending QUINN out today Call NS with any questions dispo per medicine D/w Dr Henderson Subjective: preoperative back pain is gone. POst operative back pain has been worsening. many questions about the post operative course. no weakeness/numbness/tingling Objective: up in chair, NAD VSS AAOx3 EOMI, PEARLA cnii-xii grossly intact MAEx4 5/5= SILT JPx1 serous, 90 out yesterday incision dressed, CDI. - Physician Discussed Patient with : [facility] Physical Exam - Vitals, I&O, Labs I and O 09/16/17 09/17/17 09/18/17 05:59 05:59 05:59 Intake Total 500 1265 Output Total 595 30 Balance 500 670 -30 Weight 88.451 kg Intake: Oral (ml) 500 365 IV Intake (ml) 900 Output: Urine (ml) 350 Bedside Commode 100 Toilet 250 Estimated Blood Loss (ml) 150 QUINN Drain Output (ml) 95 30 #1 Back Hubert Rai 95 30 Other: Intake Quantity Yes Yes Sufficient Number of Voids Bedside Commode 2 1 Number of Stools Bedside Commode 1 Vital Signs Temp Pulse Resp BP Pulse Ox 36.7 C 86 16 134/91 H 95 09/17/17 11:56 09/17/17 11:56 09/17/17 11:56 09/17/17 11:56 09/17/17 11:56 Laboratory Results 09/13/17 13:40 09/13/17 13:40 ICD10 Worksheet Patient Problems: Problems Problem Status Onset Burst fracture of lumbar vertebra Acute
--- NOTE | 2017-09-17 16:27 | HOSPPROG ---
Hospitalist Progress Note Assessment/Plan: 62y male with c/o back pain 2/2 L2 burst fracture. # pre-syncope - suspect 2/2 pain, not recurrent thus far # L2 burst fracture - s/p surgery per Dr. Henderson and doing well post operatively, working with pt/ot # uncontrolled pain-control currently better on current regimen, will continue for now #Constipation -aggressive therapy -fleets ordered # anxiety - -cont valium for muscle spasms and anxiety # 3.2 cm infrarenal aortic aneurysm - -outpatient follow up for surveillance #Dispo-pending, s/p surgery and may require SNF, pt/ot involved Subjective: no significant overnight events Objective: Vital Signs Temp Pulse Resp BP Pulse Ox 36.9 C 76 18 133/81 H 94 09/17/17 15:49 09/17/17 15:49 09/17/17 15:49 09/17/17 15:49 09/17/17 15:49 Laboratory Results 09/13/17 13:40 09/13/17 13:40 09/16/17 09/17/17 09/18/17 05:59 05:59 05:59 Intake Total 500 1265 Output Total 595 30 Balance 500 670 -30 awake alert anicteric op clear rrr no mrg cta to ant exam soft nt nd no cce warm dry well perfused oriented appropriate ICD10 Worksheet Patient Problems: Problems Problem Status Onset Burst fracture of lumbar vertebra Acute
[2017-09-17] MEDS: ROSUVASTATIN CALCIUM 40 MG TAB PO SCH (22:38)
[2017-09-17] MEDS: MELATONIN 3 MG TAB PO SCH (22:39)
[2017-09-18] MEDS: HYDROmorphONE/DILAUDID 2 MG TAB PO PRN ×3 (05:13→20:16)
[2017-09-18] MEDS: ACETAMINOPHEN 500 MG TAB PO SCH ×3 (05:48→22:13)
[2017-09-18] MEDS: DIAZEPAM 5 MG TAB PO PRN (07:27)
--- NOTE | 2017-09-18 10:07 | HOSPPROG ---
Hospitalist Progress Note Assessment/Plan: 62y male with c/o back pain 2/2 L2 burst fracture now s/p laminectomy and posterior fusion/stabilization # acute back pain: 2/2 L2 burst fracture as next. Failed non operative management due to severe pain. Currently pain remains inadequately controlled despite oral dilaudid, valium and apap. States his pain is essentially never less than a 6 or 7 out of 10 and limits his ability to ambulate/transfer etc. Will add MS contin, continue oral dilaudid and valium. Continue pt/ot, but query if he will require SNF stay given poor mobility still # L2 Burst fracture: s/p lami/posterior fusion and stabilization. Drain to be removed today. Pain remains an issue as above. # pre syncope: likely 2/2 pain, resolved # constipation: continue bowel protocol, has had BM # anxiety: largely driven by pain, continue prn valium for anxiety/muscle spasm # aortic aneurysm: 3.2 cm and infrarenal, routine surveillance # dispo: pending ability to ambulate and improved pain control--there are multiple steps at patients home and unclear if he could manage those. PT/OT, ? SNF Care plan reviewed with GOPI PA as above. Further hx obtained from patients present at bedside. Subjective: no significant overnight events, patient states pain remains an issue and has been severe since last night Objective: Vital Signs Temp Pulse Resp BP Pulse Ox 36.8 C 72 18 128/79 H 92 09/18/17 07:40 09/18/17 07:40 09/18/17 07:40 09/18/17 07:40 09/18/17 07:40 Laboratory Results 09/13/17 13:40 09/13/17 13:40 09/17/17 09/18/17 09/19/17 05:59 05:59 05:59 Intake Total 1265 1500 Output Total 595 1470 455 Balance 670 30 -455 awake alert mild distress anicteric op clear rrr no mrg cta to ant exam + QUINN drain with serosang output from back soft nt nd no cce warm dry well perfused oriented appropriate - Time Spent With Patient Time Spent with Patient: greater than 35 minutes Time Spent with Patient: Greater than 35 minutes spent on this patients care, greater than 50% of time spent counseling, educating, and coordinating care regarding the above mentioned plan. ICD10 Worksheet Patient Problems: Problems Problem Status Onset Burst fracture of lumbar vertebra Acute
[2017-09-18] MEDS: METHOCARBAMOL 500 MG TAB PO SCH ×3 (10:21→22:12)
[2017-09-18] MEDS: SENNOSIDES/DOCUSATE SODIUM TAB PO SCH ×2 (10:22→20:07)
[2017-09-18] MEDS: FAMOTIDINE 20 MG TAB PO SCH ×2 (10:23→20:07)
[2017-09-18] MEDS: ENOXAPARIN 40 MG/0.4 ML SYR SC SCH (10:24)
[2017-09-18] MEDS: morphINE SR 15 MG TAB PO SCH ×2 (10:26→20:07)
--- NOTE | 2017-09-18 12:10 | NEUSURGPN ---
Date of Surgery: 09/16/17 Post Op Day: 2 Assessment/Plan: 62 yo M s/p L1-L3 laminectomy and posterior fusion for stablization of L2 burst fx P: PT/OT Pain management- continue to titrate oral meds medicine managing Jarrod brace when OOB TEDs, SCDs, lovenox POD#1 Post op xrays today QUINN out today Call NS with any questions NS will SO pending normal appearing XRays dispo per medicine SNF vs home depending on progress with PT/OT D/w Dr Henderson Subjective: doing OK, still with significant pain control issues. No leg complaints Objective: NAD VSS AAOx3 EOMI, PEARLA cnii-xii grossly intact MAEx4 5/5= SILT JPx1 serous, incision dressed, CDI. Urinary Catheter in Place: No - Physician Discussed Patient with : [facility] Physical Exam - Vitals, I&O, Labs I and O 09/17/17 09/18/17 09/19/17 05:59 05:59 05:59 Intake Total 1265 1500 Output Total 595 1470 955 Balance 670 30 -955 Weight 88.451 kg Intake: Oral (ml) 365 1500 IV Intake (ml) 900 Output: Urine (ml) 350 1400 900 Bedside Commode 100 400 Toilet 250 800 Urinal 600 500 Estimated Blood Loss (ml) 150 QUINN Drain Output (ml) 95 70 55 #1 Back Alton Rai 95 70 55 Other: Intake Quantity Yes Yes Sufficient Number of Voids Bedside Commode 1 1 Toilet 2 Urinal 1 Vital Signs Temp Pulse Resp BP Pulse Ox 36.8 C 72 18 128/79 H 92 09/18/17 07:40 09/18/17 07:40 09/18/17 07:40 09/18/17 07:40 09/18/17 07:40 Laboratory Results 09/13/17 13:40 09/13/17 13:40 ICD10 Worksheet Patient Problems: Problems Problem Status Onset Burst fracture of lumbar vertebra Acute
--- NOTE | 2017-09-18 16:30 | ASMTCMCOM ---
CM Note CM Note Notes: PT cleared pt, OT recommedning HC. CM will work with pt tomorrow to set that up if he is interested. Date Signed: 09/18/2017 04:30 PM Electronically Signed By:Amna Cooper LCSW
[2017-09-18] MEDS: ROSUVASTATIN CALCIUM 40 MG TAB PO SCH (20:06)
[2017-09-18] MEDS: MELATONIN 3 MG TAB PO SCH (22:13)
[2017-09-19] MEDS: DIAZEPAM 5 MG TAB PO PRN (02:20)
[2017-09-19] MEDS: ACETAMINOPHEN 500 MG TAB PO SCH ×2 (06:05→14:16)
[2017-09-19] MEDS: HYDROmorphONE/DILAUDID 2 MG TAB PO PRN ×3 (06:06→14:15)
[2017-09-19] MEDS: ENOXAPARIN 40 MG/0.4 ML SYR SC SCH (09:10)
[2017-09-19] MEDS: POLYETHYLENE GLYCOL 3350 17 GM PKT PO PRN (09:10)
[2017-09-19] MEDS: SENNOSIDES/DOCUSATE SODIUM TAB PO SCH (09:10)
[2017-09-19] MEDS: METHOCARBAMOL 500 MG TAB PO SCH ×2 (09:10→16:24)
[2017-09-19] MEDS: FAMOTIDINE 20 MG TAB PO SCH (09:10)
[2017-09-19] MEDS: morphINE SR 15 MG TAB PO SCH (09:10)
--- NOTE | 2017-09-19 10:07 | NEUSURGPN ---
Date of Surgery: 09/16/17 Post Op Day: 3 Assessment/Plan: 62 yo M s/p L1-L3 laminectomy and posterior fusion for stablization of L2 burst fx P: PT/OT-need to encourage ambulation Pain management- continue to titrate oral meds medicine managing Jarrod brace when OOB, patient not tolerating Jarrod, will have Multisensor Intelligence Officer come fit with LSO today TEDs, SCDs, lovenox POD#1 Call NS with any questions dispo per medicine SNF vs home depending on progress with PT/OT Patient needs to get xrays done today prior to discharge, we will sign off once viewed Discussed patient with Dr Henderson Subjective: Expected incisional pain Objective: AAOx3 EOMI, PEARLA cnii-xii grossly intact MAEx4 5/5= Sensation intact to light touch BLE incision dressed, CDI. Neuro Check Frequency: per routine Urinary Catheter in Place: No - Physician Discussed Patient with : [facility] Physical Exam - Vitals, I&O, Labs I and O 09/18/17 09/19/17 09/20/17 05:59 05:59 05:59 Intake Total 1500 500 Output Total 1470 2555 Balance Intake: Oral (ml) 1500 500 Output: Urine (ml) 1400 2500 Bedside Commode 400 Toilet 800 600 Urinal 600 1500 QUINN Drain Output (ml) 70 55 #1 Back Hubert Rai 70 55 Other: Intake Quantity Yes Yes Sufficient Number of Voids Bedside Commode 1 Toilet 2 Urinal 1 Vital Signs Temp Pulse Resp BP Pulse Ox 36.5 C 76 16 125/81 H 91 L 09/19/17 07:42 09/19/17 07:42 09/19/17 07:42 09/19/17 07:42 09/19/17 07:42 Laboratory Results 09/13/17 13:40 09/13/17 13:40 ICD10 Worksheet Patient Problems: Problems Problem Status Onset Burst fracture of lumbar vertebra Acute
--- NOTE | 2017-09-19 12:51 | PDDCSUM ---
Discharge Summary Discharge Summary: Dates of service 09/12-09/19/17 Consultations: neurosurgery Procedures performed: laminectomy and posterior fusion/stabilization Hospital course by problem: 62y male with c/o back pain 2/2 L2 burst fracture now s/p laminectomy and posterior fusion/stabilization # acute back pain: 2/2 L2 burst fracture as next. Failed non operative management due to severe pain. Pain is now improved and will continue current regimen with oral dilaudid, oral valium and ms contin. Will wean off of narcotic pain medication over the next 2 weeks hopefully, has f/u established with nsg. # L2 Burst fracture: s/p lami/posterior fusion and stabilization. Drain removed , post operative xray ordered and pending prior to dc # pre syncope: likely 2/2 pain, resolved # constipation: continue bowel protocol, has had BM # anxiety: largely driven by pain, continue prn valium for anxiety/muscle spasm # aortic aneurysm: 3.2 cm and infrarenal, routine surveillance following discharge DC home f/u with neurosurgery in the next 2 weeks Items for follow up --NSG to review post operative xray --pain management and weaning off of pain medications > 35 min spent in dc more than half in coordination of care
--- NOTE | 2017-09-19 12:51 | PDIAF ---
- Diagnosis Code Status: Full Code - Medication Management Discharge Medications: Medications to Continue on Transfer Aspirin [Aspirin 81mg (*)] 81 mg PO HS 09/11/17 [Last Taken 09/09/17] Rosuvastatin Calcium [Crestor 40mg (*)] 40 mg PO HS 09/11/17 [Last Taken ] Carboxymethylcellulose 1% [Refresh Celluvisc (*)] 1 drop EACHEYE DAILY PRN 09/12 [Last Taken Unknown] Acetaminophen [Tylenol ES 500 mg (*)] 1,000 mg PO Q8HRS tab 09/19/17 [Last Taken Unknown] Diazepam [Valium 5 MG (*)] 5 mg PO Q6H PRN #30 tab 09/19/17 [Last Taken Unknown] HYDROmorphone HCL [Dilaudid 2 mg (*)] 2 - 4 mg PO Q4H PRN #60 tab 09/19/17 [ Last Taken Unknown] Magnesium Citrate [Magnesium Citrate 300 ml (*)] 300 ml PO DAILY PRN bottle [Last Taken Unknown] Melatonin [Melatonin 3 MG (*)] 3 mg PO HS tab 09/19/17 [Last Taken Unknown] Methocarbamol [Robaxin 500 mg (*)] 1,000 mg PO QID PRN #60 tab 09/19/17 [Last Taken Unknown] Morphine Sulfate [Ms Contin] 15 mg PO BID #28 tablet.er 09/19/17 [Last Taken Unknown] Ondansetron Odt [Zofran Odt 4 mg (*)] 4 mg PO Q4 PRN #30 tab 09/19/17 [Last Taken Unknown] Polyethylene Glycol 3350 [Miralax 17 gm (*)] 17 gm PO DAILY PRN pkt 09/19/17 [ Last Taken Unknown] Sennosides/Docusate Sodium [Senokot-S] 1 - 2 tab PO BID tab 09/19/17 [Last Taken Unknown] diphenhydrAMINE [Benadryl 25 MG (*)] 25 - 50 mg PO Q6HRS PRN cap 09/19/17 [ Last Taken Unknown] Discharge Medications: Refer to the Discharge Home Medication list for PRN reason. - Orders Services needed: Home Care, Physical Therapy, Occupational Therapy Home Care Face to Face: I certify that this patient was under my care and that I had the required [id number] encounter meeting the encounter requirements on the discharge day. My findings support the fact that the patient is homebound as defined in Home Care Face to Face Continued: CMS Chapter 7 Medicare Benefits Manual 30.1.1 , The condition of the patient is such that there exists a normal inability to leave home and consequently, leaving home would require a considerable and taxing effort. Activity/Weight Bearing Restrictions: Continue to wear Sandy Brace whenever out of bed. Additional Instructions: Avoid bending and twisting Do not lift greater than 10 pounds Wear brace when out of bed Ok to shower - Follow Up Care Current Providers and Referrals: Chad Olivia DO [Primary Care Provider] - As per Instructions Arian Henderson MD [Medical Doctor] - follow up in 2 weeks
[2017-09-19] MEDS: MAGNESIUM HYDROXIDE 30 ML UDCUP PO PRN (14:16)
[2017-09-19 16:23] VITALS: BP 123/86
--- NOTE | 2017-09-19 16:41 | ASMTCMCOM ---
CM Note CM Note Notes: Pt medically stable for d/c with [facility] PT/OT. Orders to be obtained in [facility]. Date Signed: 09/19/2017 04:40 PM Electronically Signed By:ANGELINA Cano
--- NOTE | 2017-09-20 09:50 | ASDISCHSUM ---
Discharge Information Plan Status:Home with Home Health Medically Cleared to Leave: Discharge Date:09/19/2017 05:47 PM CM D/C Disposition:Home Health Service ADT D/C Disposition:Home Health Service Projected Discharge Date:09/19/2017 11:00 AM Transportation at D/C: Discharge Delay Reason: Follow-Up Date:09/19/2017 11:00 AM Discharge Slot: Final Diagnosis: Placement Information Referral Type:*Home Health Care Services Referral ID:[id number] Provider Name:[facility] [address] [place] [address] Address 2: City:[place] Selection Factors: State:[place] Patient Contact Information Contact Name:YOLANDAKORIN Relationship: Address:[address] City:[place] Alternate Phone: State/Zip Code:[place] [address] Email: Financial Information Financial Class:HMO and PPO Plans Primary Plan Desc:[employer] PPO HMO Primary Plan Number:[id number] Secondary Plan Desc: Secondary Plan Number: Assessment Information [facility] CM Progress Note CM Note CM Note Notes: Pt awaiting [place] brace for L2 burst fracture after a fall. No therapies ordered now. CM to follow for d/c planning. Date Signed: 09/12/2017 03:15 PM Electronically Signed By:ANGELINA Cano [facility] SONIA Progress Note CM Note CM Note Notes: Pt has not been able to tolerate brace and has uncontrolled pain. Pt to OR tomorrow for surgery of L2 burst fx. OT/PT to assess after surgery. CM to follow for d/c planning needs. Date Signed: 09/15/2017 10:09 AM Electronically Signed By:ANGELINA Cano [facility] CM Progress Note CM Note CM Note Notes: Pt having surgery today. PT/OT ordered; awaiting post op evals. CM will follow. Dc plan TBD Date Signed: 09/16/2017 04:47 PM Electronically Signed By:Debbie Bojorquez RN [facility] CM Progress Note CM Note CM Note Notes: PT cleared pt, OT recommedning . CM will work with pt tomorrow to set that up if he is interested. Date Signed: 09/18/2017 04:30 PM Electronically Signed By:Amna Cooper LCSW [facility] CM Progress Note CM Note CM Note Notes: Pt medically stable for d/c with [facility] PT/OT. Orders to be obtained in [facility]. Date Signed: 09/19/2017 04:40 PM Electronically Signed By:ANGELINA Cano Intervention Information
== END 2017-09-19 17:47 | disposition home health service (06) | DRG 460 ==
LOC: CED 20:44 → OBSVTOIN 22:50 → CEDHOLD 22:50 → F3N 09-12 00:13
PROVIDERS: ADMIT Student in an Organized Health Care Education/Training Program; ATTEND Internal Medicine
PROC: 0SS004Z Reposition Lumbar Vertebral Joint with Internal Fixation Device, Open Approach (ICD-10-PCS; principal; 2017-09-16 08:15)
PROC: 0QB00ZZ Excision of Lumbar Vertebra, Open Approach (ICD-10-PCS; principal; 2017-09-16 08:15)
PROC: 0SG10AJ Fusion of 2 or more Lumbar Vertebral Joints with Interbody Fusion Device, Posterior Approach, Anterior Column, Open Approach (ICD-10-PCS; principal; 2017-09-16 08:15)
PROC: 4A10X4G Monitoring of Central Nervous Electrical Activity, Intraoperative, External Approach (ICD-10-PCS; principal; 2017-09-16 08:15)
PROC: BR191ZZ Fluoroscopy of Lumbar Spine using Low Osmolar Contrast (ICD-10-PCS; principal; 2017-09-16 08:15)
DX: S32.001A Stable burst fracture of unspecified lumbar vertebra, initial encounter for closed fracture (principal); S33.0XXA Traumatic rupture of lumbar intervertebral disc, initial encounter; W01.198A Fall on same level from slipping, tripping and stumbling with subsequent striking against other object, initial encounter; Y93.89 Activity, other specified; M54.5 Low back pain; F41.9 Anxiety disorder, unspecified; I25.10 Atherosclerotic heart disease of native coronary artery without angina pectoris; K59.00 Constipation, unspecified; I71.4 Abdominal aortic aneurysm, without rupture; E78.00 Pure hypercholesterolemia, unspecified; Z95.5 Presence of coronary angioplasty implant and graft; Z88.2 Allergy status to sulfonamides
CPT/HCPCS: 72100-PO; 72131-PO; 96374; 97116-GP; 97161-GP; 97164-GP; 97165-GO; 97530-GP; 97535-GO; C1713; G0378; J0171; J0330; J0690; J1100; J1170; J1650; J2250; J2270; J2274; J2370; J2405; J2704; J2765; J2780; J2800; J3010; P9041

== ENCOUNTER → 2017-10-24 | Outpatient (CLI) | payer OTHER | LOC: FIMAGING 09:59 | PROVIDERS: ATTEND Physician Assistant | DX: Z98.1 Arthrodesis status (principal); M51.36 Other intervertebral disc degeneration, lumbar region ==

== ENCOUNTER → 2017-12-02 | Outpatient (CLI) | payer OTHER | LOC: CIMAGING 13:51 | PROVIDERS: ATTEND Physician Assistant | DX: M51.36 Other intervertebral disc degeneration, lumbar region (principal); S32.021D Stable burst fracture of second lumbar vertebra, subsequent encounter for fracture with routine healing; Z98.1 Arthrodesis status | CPT/HCPCS: 72100-PO ==

== ENCOUNTER → 2018-03-07 | Outpatient (CLI) | payer OTHER | LOC: CIMAGING 14:15 | PROVIDERS: ATTEND Physician Assistant Surgical | DX: Z09 Encounter for follow-up examination after completed treatment for conditions other than malignant neoplasm (principal); Z98.1 Arthrodesis status | CPT/HCPCS: 72100-PO ==

== ENCOUNTER → 2018-05-03 | Outpatient (CLI) | payer OTHER ==
[~2018-05-03] MED LIST: IOPAMIDOL (ISOVUE 370) 100 ML BTL IV ONE
== END ==
LOC: FIMAGING 09:11
PROVIDERS: ATTEND Family Medicine
DX: I71.01 Dissection of thoracic aorta (principal)
CPT/HCPCS: Q9967

== ENCOUNTER → 2018-07-06 | Outpatient (CLI) | payer OTHER | LOC: FIMAGING 18:20 | PROVIDERS: ATTEND Psychiatry & Neurology Neurology | DX: R56.9 Unspecified convulsions (principal) ==

== ENCOUNTER → 2018-07-18 | Outpatient (CLI) | payer OTHER ==
[~2018-07-18] MED LIST changes: +IOHEXOL 350mgI/ML (OMNIPAQUE) 150 ML BTL IV ONE; -IOPAMIDOL (ISOVUE 370) 100 ML BTL IV ONE
== END ==
LOC: FIMAGING 09:08
PROVIDERS: ATTEND Psychiatry & Neurology Neurology
DX: I77.89 Other specified disorders of arteries and arterioles (principal); Z86.73 Personal history of transient ischemic attack (TIA), and cerebral infarction without residual deficits
CPT/HCPCS: 70496; 70498; Q9967

== ENCOUNTER → 2018-07-20 | Outpatient (CLI) | payer OTHER ==
--- NOTE | 2018-07-20 14:06 | CPEEG ---
[f rep st] ELECTROENCEPHALOGRAM 4-HOUR VIDEO EEG. DATE OF STUDY: 07/20/2018 DATE OF INTERPRETATION: 07/20/2018. INTERPRETATION: This 4-hour video EEG recording is normal. There were no potentially epileptogenic abnormalities present in the awake or sleep recordings. During the video EEG monitoring session, the patient did not have any clinical events. REPORT: This 4-hour video EEG contains 10 Hz alpha activity over the posterior head regions. There was no abnormal activation at rest, during photic stimulation or hyperventilation. The patient becam e drowsy and fell into sustained sleep during the study. There was no abnormal activation during danita wsiness, sleep, or during times of arousal. The patient did not have any clinical events during the video EEG monitoring session. /[id number]/MODL
== END ==
LOC: FCPNEURO 07:44
PROVIDERS: ATTEND Psychiatry & Neurology Neurology
DX: R56.9 Unspecified convulsions (principal); R94.02 Abnormal brain scan; I77.89 Other specified disorders of arteries and arterioles